=== PATIENT | male | born 1990 | race African-American/Black ===

== ENCOUNTER 2023-06-11 03:01 | Emergency (ER) | payer OTHER, SELFPAY ==
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
[2023-06-11 03:09] VITALS: BP 152/90; PULSE 120; O2SAT 98
[2023-06-11 03:18] VITALS: BP 155/92; PULSE 107; RESP 18; TEMP 36.1; O2SAT 94; BMI 40.9
[2023-06-11 05:50] VITALS: BP 137/81; PULSE 97; RESP 18; TEMP 35.6; O2SAT 97
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
== END 2023-06-11 08:56 | disposition home or self-care (01) ==
PROVIDERS: Emergency Provider Student in an Organized Health Care Education/Training Program
DX: Z04.1 Encounter for examination and observation following transport accident (principal); R51.9 Headache, unspecified
CPT/HCPCS: 70450; 72125; 99284